=== PATIENT | male | born 1995 | race Caucasian/White ===

== ENCOUNTER → 2017-04-22 | Emergency (ER) | payer OTHER ==
[~2017-04-22] VITALS: Ht 180.3 cm; Wt 72.6 kg
[~2017-04-22] MED LIST: ALBUTEROL SULF8.5 GM INH; NORCO 5-325 TA1 EACH PO; OCUFLOX5 ML OPTH; ULTRAM50 MG PO
== END ==
LOC: ED 11:56
DX: K04.7 Periapical abscess without sinus (principal); F32.9 Major depressive disorder, single episode, unspecified; F90.9 Attention-deficit hyperactivity disorder, unspecified type; F17.200 Nicotine dependence, unspecified, uncomplicated; Z88.0 Allergy status to penicillin
CPT/HCPCS: 96365; 99283; J0696

== ENCOUNTER 2019-05-24 15:43 | Emergency (ER) | payer OTHER ==
[~2019-05-24] VITALS: Ht 185.4 cm; Wt 83.9 kg
[~2019-05-24 15:43] MED LIST changes: +CYCLOBENZAPRINE10 MG PO; +DICLOFENAC SODI75 MG PO; +IBUPROFEN600 MG PO; +ROBAXIN-750750 MG PO
--- OUTSIDE RECORDS SUMMARY | 2019-05-24 15:48 | XMS ---
PreManage Notification: TIM MURILLO Security Assistant Plant Manager Events No recent Security Events currently on file CRITERIA MET - [facility] - Has Care Guidelines - [facility] - 2 Visits in 30 Days CARE PROVIDERS GINA PORTER Nurse Practitioner: Family 04/03/2019-Current PHONE: Unknown NORI PRIMARY Primary Care 07/28/2016-[facility] PHONE: [phone] Guidelines Source: [facility] Guidelines Date: 04/03/2019 Care Coordination: Mental health services provided by [facility].\T\nbsp; Please contact [facility] with mental health concerns.\T\nbsp; Nori/Quincy Murrell: [phone]\T\ nbsp; Jesse: [phone]. Care History Medical/Surgical 04/03/2019 [facility] - Patient is currently established with [facility]. If patient is seen in the ED during business hours. Please contact CHWs at [facility]. Care Recommendation: This patient has had 5 or more Emergency Department visits in the last 12 months.\T\nbsp; Patient requires education on the scope and purpose of the ED as an acute care provider not a Primary Care Provider and should not be utilized for chronic conditions.\T\nbsp; These are guidelines and the provider should exercise clinical judgment when providing care. E.D. VISIT COUNT (12 MO.) 5 NILES Huerta TOTAL 5 NOTE: Visits indicate total known visits. ED/C VISIT TRACKING (12 MO.) 05/24/2019 15:46 [facility] [place] TYPE: Emergency COMPLAINT: - HEADACHE NUMBNESS IN NECK, DUE TO ACCIDENT 05/08/2019 11:54 [facility] [place] TYPE: Emergency COMPLAINT: - BACK PAIN NON INJURY DIAGNOSES: - Low back pain - Allergy status to penicillin - Overexertion from strenuous movement or load, initial encounter - Nicotine dependence, unspecified, uncomplicated - Strain of muscle, fascia and tendon of lower back, initial encounter 05/04/2019 19:29 [facility] [place] TYPE: Emergency COMPLAINT: - LOW BACK PAIN, NO INJURY DIAGNOSES: - Nicotine dependence, unspecified, uncomplicated - Low back pain - Allergy status to penicillin 05/02/2019 15:21 [facility] [place] TYPE: Emergency COMPLAINT: - JAW INJURY DIAGNOSES: - Striking against or struck by other objects, initial encounter - Allergy status to penicillin - Jaw pain - Nicotine dependence, unspecified, uncomplicated - Contusion of other part of head, initial encounter 04/02/2019 13:[address] [facility] [place] TYPE: Emergency COMPLAINT: - RIGHT HAND PAIN/INJURY DIAGNOSES: - Allergy status to penicillin - Nicotine dependence, unspecified, uncomplicated - Striking against or struck by other objects, initial encounter - Pain in right hand - Contusion of right hand, initial encounter INPATIENT VISIT TRACKING (12 MO.) No inpatient visits to display in this time frame [id number]
[2019-05-24] MEDS ORDERED: ONDANSETRON ODT4 MG PO (15:54)
== END 2019-05-24 17:04 | disposition home or self-care (01) ==
LOC: ED 15:43
DX: S16.1XXA Strain of muscle, fascia and tendon at neck level, initial encounter (principal); W22.8XXA Striking against or struck by other objects, initial encounter; F32.9 Major depressive disorder, single episode, unspecified; F90.9 Attention-deficit hyperactivity disorder, unspecified type; F17.200 Nicotine dependence, unspecified, uncomplicated; Z88.0 Allergy status to penicillin; Z79.899 Other long term (current) drug therapy
CPT/HCPCS: 99283

== ENCOUNTER 2019-07-11 23:57 | Emergency (ER) | payer OTHER ==
[~2019-07-11] VITALS: Ht 185.4 cm; Wt 83.9 kg
--- OUTSIDE RECORDS SUMMARY | ~2019-07-11 | XMS | Encounter Summary ---
Demographics + + + | Address | [address] | | | [place] [address] | + + + | Home Phone | | + + + | Preferred Language | Unknown | + + + | Marital Status | Single | + + + | Orthodoxy Affiliation | Unknown | + + + | Race | or | + + + | Ethnic Group | Not or | + + + Author + + + | Author | [facility] | + + + | Organization | [facility] | + + + | Address | Unknown | + + + | Phone | Unavailable | + + + Support + + + + + | Name | Relationship | Address | Phone | + + + + + | Татьяна Chris | ELSIE | [place] | | + + + + + Care Team Providers + +------+ + | Care Spinner Frame Name | Role | Phone | + +------+ + PCP | Unavailable | + +------+ + Encounter Details +--------+ + + + + | Date | Type | Department | Care Team | Description | +--------+ + + + + | 11/01/ | Office | [facility] | Consult, Cdrc | Progress Note | | 2003 | Visit-Trans | | | | | | cribed | | | | +--------+ + + + + Social History + +-------+ +--------+------+ | Tobacco Use | Types | Packs/Day | Years | Date | | | | | Used | | + +-------+ +--------+------+ | Never Assessed | | | | | + +-------+ +--------+------+ + + + | Sex Assigned at | Date Recorded | | | | + + + | Not on file | | + + + + + + + | Job Start Date | Occupation | Industry | + + + + | Not on file | Not on file | Not on file | + + + + + + + + | Travel History | Travel Start | Travel End | + + + + + + | No recent travel history available. | + + documented as of this encounter Progress Notes Interface, Baseball Winder In - 04/25/2005 8:31 PM PDTCLINIC DATE: 11/01/2003 CLINIC NAME: [facility]/[place]ori DISCIPLINE: Social Work Mac's father Miah comes to the [facility] meeting at the [place] [employer] [facility]. Mac has come to the attention of this team before and is also being monitored by the [facility] Team. Mac has a diagnosis of ADHD but behaviors and emotions are a significant and growing concern. School staff has administered Preeti rating scales and an Achenbach and results indicate that Mac struggles with depression and anxiety. He has challenges with emotional reactivity which contribute to the aggressive behavior when he becomes angry. His single dad works outside of the home and has his own health problems likely contribute to his difficulty in managing Mac's behavior. Also in this family is an older brother with behavior problems. Mac has been referred to [facility] but it appears that the head athletic trainer/strength coach who was supposed to be meeting with him was not. Mac is in need of immediate mental health treatment and likely family therapy. During today's meeting Mac's case making machine operator with [facility] was in attendance and indicated a desire to get this family connected to appropriate services within or outside of her system. Mac's paint tinter is Martine Pittman MD. Mac is a 4th grader at [employer]. Abeba Cook [facility] Gun Perforator Loader YOSEPH/nina P C: 01/28/2004 amm documented in this encounter Plan of Treatment Not on filedocumented as of this encounter Visit Diagnoses Not on filedocumented in this encounter"
--- OUTSIDE RECORDS SUMMARY | ~2019-07-11 | XMS | Clinical Summary ---
Demographics + + + | Address | [address] | | | [place] [address] | + + + | Home Phone | | + + + | Preferred Language | Unknown | + + + | Marital Status | Single | + + + | Taoism Affiliation | Unknown | + + + | Race | or | + + + | Ethnic Group | Not or | + + + Author + + + | Organization | Unknown | + + + | Address | Unknown | + + + | Phone | Unavailable | + + + Support + + + + + | Name | Relationship | Address | Phone | + + + + + | Татьяна Chris | ELSIE | [place] | | + + + + + Care Team Providers + +------+ + | Care Abatement Worker Name | Role | Phone | + +------+ + PCP | Unavailable | + +------+ + Source Comments TALA is fully live on both [facility] and [facility] InPatient.[facility] Allergies Not on File Medications Not on file Active Problems Not on file Social History + +-------+ +--------+------+ | Tobacco [...] recent travel history available. | + + Last Filed Vital Signs Not on file Plan of Treatment + + + + + | Health Maintenance | Due Date | Last Done | Comments | + + + + + | Influenza (Flu) | | | | | vaccination (#1) | 9 | | | + + + + + | Pneumococcal | Aged Out | | No longer eligible | | vaccination | | | based on patient's | | | | | age to complete this | | | | | topic | + + + + + Results Not on filefrom Last 3 Months"
--- OUTSIDE RECORDS SUMMARY | ~2019-07-11 | XMS | Encounter Summary ---
Demographics + + + | Address | [address] | | | [place] [address] | + + + | Home Phone | | + + + | Preferred Language | Unknown | + + + | Marital Status | Single | + + + | Sabianism Affiliation | Unknown | + + + | Race | or | + + + | Ethnic Group | Not or | + + + Author + + + | Author | [facility] | + + + | Organization | [facility] | + + + | Address | Unknown | + + + | Phone | Unavailable | + + + Support + + + + + | Name | Relationship | Address | Phone | + + + + + | Татьяна Chris | ELSIE | [place] | | + + + + + Care Team Providers + +------+ + | Care Therapeutic Riding Instructor Name | Role | Phone | + [...] as of this encounter Progress Notes Interface, Tankage Grinder In - 04/25/2005 8:31 PM PDTCLINIC DATE: 11/01/2003 CLINIC NAME: [facility]/[place] DISCIPLINE: Social Work Mac's father Miah comes to the [facility] meeting at the [facility] [employer] [facility]. Mac has come to the attention of this team before and is also being monitored by the [facility] Team. Mac has a diagnosis of ADHD [...] behavior problems. Mac has been referred to [facility] but it appears that the clinical provider trainer who was supposed to be meeting with him was not. Mac is in need of immediate mental health treatment and likely family therapy. During today's meeting Mac's welfare case worker with [facility] was in attendance and indicated a desire to get this family connected to appropriate services within or outside of her system. Mac's networking administrator is Martine Pittman MD. Mac is a 4th grader at [employer]. Abeba Cook [facility] Manager Ship YOSEPH/nina P C: 01/28/2004 amm documented in this encounter Plan of Treatment Not on filedocumented as of this encounter Visit Diagnoses Not on filedocumented in this encounter"
--- OUTSIDE RECORDS SUMMARY | ~2019-07-11 | XMS | Clinical Summary ---
Demographics + + + | Address | [address] | | | [place] [address] | + + + | Home Phone [...] Team Providers + +------+ + | Care Astrobiologist Name | Role | Phone | + +------+ + PCP | Unavailable | + +------+ + Source Comments TALA is fully live on both [facility] and [facility] InPatient.[facility] Allergies Not on File Medications Not [...]
[~2019-07-11 23:57] MED LIST changes: +ONDANSETRON ODT4 MG PO
--- OUTSIDE RECORDS SUMMARY | 2019-07-12 | XMS ---
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 Events No recent Security Events currently on file CRITERIA MET - 6 ED Visits in 6 Months - [facility] - Has Care Guidelines CARE PROVIDERS GINA PORTER Nurse Practitioner: Family 04/03/2019-Current PHONE: Unknown NORI PRIMARY Primary Care 07/28/2016-[facility] PHONE: [phone] [facility] Guidelines Date: 04/03/2019 Care Coordination: [facility].\T\nbsp; [facility].\T\nbsp; Nori/Quincy Murrell: [phone]\T\ nbsp; Jesse: [phone]. Care History Medical/Surgical 04/03/2019 [facility] - Patient is currently established with [facility]. If patient is seen in the ED during business hours. Please contact CHWs at [facility]. Care Recommendation: This patient has had 5 or more Emergency Department visits in the last 12 months.\T\nbsp; Patient requires education on the scope and purpose of the ED as an acute care provider not a Primary Care Provider and should not be utilized for chronic conditions.\T\nbsp; These are guidelines and the provider should exercise clinical judgment when providing care. ELoveD. VISIT COUNT (12 MO.) 6 NILES Huerta TOTAL 6 NOTE: Visits indicate total known visits. ED/UCC VISIT TRACKING (12 MO.) 07/11/2019 23:58 NIL[facility] [place] TYPE: Emergency COMPLAINT: - LEFT ARM PAIN 05/24/2019 15:46 [facility] [place] TYPE: Emergency COMPLAINT: - HEADACHE NUMBNESS IN NECK, DUE TO ACCIDENT DIAGNOSES: - Other group home (current) drug therapy - Major depressive disorder, single episode, unspecified - Nicotine dependence, unspecified, uncomplicated - Allergy status to penicillin - Attention-deficit hyperactivity disorder, unspecified type - Striking against or struck by other objects, init encntr - Strain of muscle, fascia and tendon at neck level, init - Cervicalgia 05/08/2019 11:54 [facility] [place] TYPE: Emergency COMPLAINT: - BACK PAIN NON INJURY DIAGNOSES: - Low back pain - Allergy status to penicillin - Overexertion from strenuous movement or load, init - Nicotine dependence, unspecified, uncomplicated - Strain of muscle, fascia and tendon of lower back, init 05/04/2019 19:29 [facility] [place] TYPE: Emergency COMPLAINT: - LOW BACK PAIN, NO INJURY DIAGNOSES: - Nicotine dependence, unspecified, uncomplicated - Low back pain - Allergy status to penicillin 05/02/2019 15:21 [facility] [place] TYPE: Emergency COMPLAINT: - JAW INJURY DIAGNOSES: - Striking against or struck by other objects, init encntr - Allergy status to penicillin - Jaw pain - Nicotine dependence, unspecified, uncomplicated - Contusion of other part of head, initial encounter 04/02/2019 13:47 [facility] [place] TYPE: Emergency COMPLAINT: - RIGHT HAND PAIN/INJURY DIAGNOSES: - Allergy status to penicillin - Nicotine dependence, unspecified, uncomplicated - Striking against or struck by other objects, init encntr - Pain in right hand - Contusion of right hand, initial encounter INPATIENT VISIT TRACKING (12 MO.) No inpatient visits to display in this time frame [email or web address]
[2019-07-12] MEDS ORDERED: ARIPIPRAZOLE5 MG PO (00:02)
[2019-07-12] MEDS ORDERED: ARIPIPRAZOLE10 MG PO (00:02)
[2019-07-12] MEDS ORDERED: MINIPRESS2 MG PO (00:03)
[2019-07-12] MEDS ORDERED: IBUPROFEN600 MG PO (00:04)
== END 2019-07-12 00:22 | disposition home or self-care (01) ==
LOC: ED 23:57
DX: M79.602 Pain in left arm (principal); F17.200 Nicotine dependence, unspecified, uncomplicated; F32.9 Major depressive disorder, single episode, unspecified; Z88.0 Allergy status to penicillin; Z79.899 Other long term (current) drug therapy
CPT/HCPCS: 99283

== ENCOUNTER 2021-02-20 07:50 | Emergency (ER) | payer OTHER ==
[~2021-02-20] VITALS: Ht 185.4 cm; Wt 97.1 kg
[~2021-02-20 07:50] MED LIST changes: +ARIPIPRAZOLE10 MG PO; +ARIPIPRAZOLE5 MG PO; +MINIPRESS2 MG PO
[2021-02-20] MEDS ORDERED: BUPROPION XL150 MG PO (08:59)
[2021-02-20] MEDS ORDERED: ONDANSETRON ODT8 MG PO (11:21)
== END 2021-02-20 11:32 | disposition home or self-care (01) ==
LOC: ED 07:50
DX: A08.4 Viral intestinal infection, unspecified (principal); Z87.891 Personal history of nicotine dependence; Z88.0 Allergy status to penicillin; Z79.899 Other long term (current) drug therapy
CPT/HCPCS: 74177; 80053; 81001; 83690; 85025; 99284-25; J2405; J7030; Q9967

== ENCOUNTER 2021-09-22 11:57 | Emergency (ER) | payer OTHER ==
[~2021-09-22] VITALS: Ht 185.4 cm; Wt 103.1 kg
[~2021-09-22 11:57] MED LIST changes: +BUPROPION XL150 MG PO; +ONDANSETRON ODT8 MG PO
[2021-09-22] MEDS ORDERED: OMEPRAZOLE20 MG PO (15:23)
[2021-09-24] MEDS ORDERED: DICLOFENAC SODI75 MG PO (22:01)
[2021-09-24] MEDS ORDERED: LIDODERM1 EACH TOP (22:01)
== END 2021-09-22 16:46 | disposition home or self-care (01) ==
LOC: ED 11:57
DX: M54.50 Low back pain, unspecified (principal); Z87.891 Personal history of nicotine dependence; Z88.0 Allergy status to penicillin; Z79.899 Other long term (current) drug therapy
CPT/HCPCS: 96372; 99283; A9270; J1885

== ENCOUNTER 2022-03-11 08:44 | Emergency (ER) | payer OTHER ==
[~2022-03-11] VITALS: Ht 188 cm; Wt 93.0 kg
[~2022-03-11 08:44] MED LIST changes: +LIDODERM1 EACH TOP; +OMEPRAZOLE20 MG PO
--- OUTSIDE RECORDS SUMMARY | 2022-03-11 10:42 | XMS ---
PreManage Notification: TIM MRUILLO Security Aged Or Disabled Carer Events No recent Security Events currently on file CRITERIA MET - [facility] - 2 Visits in 30 Days CARE PROVIDERS GINA PORTER Nurse Practitioner: 04/03/2019-Current PHONE: Unknown Monica Contreras Nurse Practitioner: Current PHONE: [phone] Care Guidelines exist for the following facilities: [facility] ( 11/11/2020 ) Care History Medical/Surgical 04/03/2019 [facility] - Patient is currently established with [facility]. If patient is seen in the ED during business hours. Please contact CHWs at [facility]. Care Recommendation: This patient has had 5 [...] providing care. E.D. VISIT COUNT (12 MO.) 4 NILES Huerta TOTAL 4 NOTE: Visits indicate total known visits. ED/UCC VISIT TRACKING (12 MO.) 03/11/2022 08:45 [facility] [place] TYPE: Emergency COMPLAINT: - R ANKLE/CALF PAIN 03/10/2022 19:30 [facility] [place] [facility] [place] TYPE: Emergency COMPLAINT: - RT ANKLE PAIN 09/24/2021 15:57 [facility] [place] TYPE: Emergency COMPLAINT: - BACK PAIN/NON INJURY DIAGNOSES: - Low back pain, unspecified - LOW BACK PAIN, UNSPECIFIED - Personal history of nicotine dependence - Allergy status to penicillin - Other truck terminal manager (current) drug therapy 09/22/2021 11:58 NIL[facility] [place] TYPE: Emergency COMPLAINT: - LOWER BACK PAIN DIAGNOSES: - Allergy status to penicillin - Other truck terminal manager (current) drug therapy - LOW BACK PAIN, UNSPECIFIED - Low back pain, unspecified - Personal history of nicotine dependence INPATIENT VISIT TRACKING (12 MO.) No inpatient visits to display in this time frame [email or web address]
== END 2022-03-11 10:06 | disposition home or self-care (01) ==
LOC: ED 08:44
DX: S86.111A Strain of other muscle(s) and tendon(s) of posterior muscle group at lower leg level, right leg, initial encounter (principal); X50.1XXA Overexertion from prolonged static or awkward postures, initial encounter; Z87.891 Personal history of nicotine dependence; Z88.0 Allergy status to penicillin; Z79.899 Other long term (current) drug therapy
CPT/HCPCS: 99283

== ENCOUNTER 2022-04-03 15:16 | Emergency (ER) | payer OTHER ==
[~2022-04-03] VITALS: Ht 188 cm; Wt 90.7 kg
--- OUTSIDE RECORDS SUMMARY | 2022-04-03 15:24 | XMS ---
PreManage Notification: TIM MURILLO Security Plan Checker Events 1 event(s) in the past 18 months Most recent security events: Elopement at [facility] 03/10/2022 19:30 - Patient eloped before treatment completed. - Patient with suicidal and/or homicidal ideations eloped. - Patient eloped with IV in place. Details: PATIENT LWBS CRITERIA MET - [facility] - 2 Visits in 30 Days CARE PROVIDERS GINA PORTER Nurse Practitioner: 04/03/2019-Current PHONE: Unknown Monica Contreras Nurse Practitioner: Current PHONE: [phone] Care Guidelines exist for the following facilities: [facility] ( 11/11/2020 ) Care History Medical/Surgical 04/03/2019 [facility] - Patient is currently established with [facility]. If patient is seen in the ED during business hours. Please contact CHWs at [facility]. Care Recommendation: This patient has had 5 [...] care. E.D. VISIT COUNT (12 MO.) 5 [facility]. TOTAL 5 NOTE: Visits indicate total known visits. ED/UCC VISIT TRACKING (12 MO.) 04/03/2022 15:17 N[facility] [place] TYPE: Emergency COMPLAINT: - BACK PAIN 03/11/2022 08:45 NIL[facility] Go[facility] [place] TYPE: Emergency COMPLAINT: - R ANKLE/CALF PAIN DIAGNOSES: - Personal history of nicotine dependence - Pain in right ankle and joints of right foot - Strain of other muscle(s) and tendon(s) of posterior muscle group at lower leg level, right leg, initial encounter - Other assisted (current) drug therapy - Overexertion from prolonged static or awkward postures, initial encounter - Allergy status to penicillin 03/10/2022 19:30 N[facility] [place] TYPE: Emergency COMPLAINT: - RT ANKLE PAIN 09/24/2021 15:57 N[facility] [place] TYPE: Emergency COMPLAINT: - BACK PAIN/NON INJURY DIAGNOSES: - Low back pain, unspecified - LOW BACK PAIN, UNSPECIFIED - Personal history of nicotine dependence - Allergy status to penicillin - Other superintendent marine oil terminal (current) drug therapy 09/22/2021 11:[address] [facility] [place] TYPE: Emergency COMPLAINT: - LOWER BACK PAIN DIAGNOSES: - Allergy status to penicillin - Other superintendent marine oil terminal (current) drug therapy - LOW BACK PAIN, UNSPECIFIED - Low back pain, unspecified - Personal history of nicotine dependence INPATIENT VISIT TRACKING (12 MO.) No inpatient visits to display in this time frame [email or web address]
[2022-04-03] MEDS ORDERED: METHOCARBAMOL750 MG PO (16:01)
== END 2022-04-03 16:18 | disposition home or self-care (01) ==
LOC: ED 15:16
DX: M54.50 Low back pain, unspecified (principal); Z87.891 Personal history of nicotine dependence; Z88.0 Allergy status to penicillin; Z79.899 Other long term (current) drug therapy
CPT/HCPCS: 99283; A9270

== ENCOUNTER 2022-04-11 10:32 | Emergency (ER) | payer OTHER ==
[~2022-04-11] VITALS: Ht 188 cm; Wt 89.8 kg
[~2022-04-11 10:32] MED LIST changes: +METHOCARBAMOL750 MG PO
--- OUTSIDE RECORDS SUMMARY | 2022-04-11 10:40 | XMS ---
PreManage Notification: TIM MURILLO Security National Sales Associate Events 1 event(s) in the past 18 months Most recent security events: Elopement at [facility] 03/10/2022 19:30 - Patient eloped before treatment completed. - Patient with suicidal and/or homicidal ideations eloped. - Patient eloped with IV in place. Details: PATIENT LWBS CRITERIA MET - [facility] - 2 Visits in 30 Days CARE PROVIDERS GINA PORTER Nurse Practitioner: 04/03/2019-Current PHONE: Unknown Monica Contreras Nurse Practitioner: Current PHONE: [phone] Care Guidelines exist for the following facilities: [facility] ( 11/11/2020 ) Care History Medical/Surgical 04/03/2019 [facility] - [facility] [...] providing care. E.D. VISIT COUNT (12 MO.) 7 [facility]. TOTAL 7 NOTE: Visits indicate total known visits. ED/UCC VISIT TRACKING (12 MO.) 04/11/2022 10:32 [facility] [place] [facility] [place] TYPE: Emergency COMPLAINT: - BACK PAIN 04/10/2022 17:52 [facility] [place] [facility] [place] TYPE: Emergency COMPLAINT: - BACK PAIN 04/03/2022 15:17 [facility] [place] [facility] [place] TYPE: Emergency COMPLAINT: - BACK PAIN DIAGNOSES: - Other terminal clerk (current) drug therapy - Personal history of nicotine dependence - Dorsalgia, unspecified - Allergy status to penicillin - Low back pain, unspecified 03/11/2022 08:45 [facility] [place] [facility] [place] TYPE: Emergency COMPLAINT: - R ANKLE/CALF PAIN DIAGNOSES: - Personal history of nicotine dependence - Pain in right ankle and joints of right foot - Strain of other muscle(s) and tendon(s) of posterior muscle group at lower leg level, right leg, initial encounter - Other nursing home (current) drug therapy - Overexertion from prolonged [...] - Allergy status to penicillin - Other nursing home (current) drug therapy 09/22/2021 11:58 [facility] [place] TYPE: Emergency COMPLAINT: - LOWER BACK PAIN DIAGNOSES: - Allergy status to penicillin - Other terminal clerk (current) drug therapy - LOW BACK PAIN, UNSPECIFIED - Low back pain, unspecified - Personal history of nicotine dependence INPATIENT VISIT TRACKING (12 MO.) No inpatient visits to display in this time frame [email or web address]
[2022-04-11] MEDS ORDERED: METHYLPREDNISOLO4 M1 PO (12:52)
== END 2022-04-11 13:04 | disposition home or self-care (01) ==
LOC: ED 10:32
DX: M54.42 Lumbago with sciatica, left side (principal); Z87.891 Personal history of nicotine dependence; Z88.0 Allergy status to penicillin; Z79.899 Other long term (current) drug therapy
CPT/HCPCS: 99283

== ENCOUNTER 2022-10-18 11:13 | Emergency (ER) | payer OTHER ==
[~2022-10-18] VITALS: Ht 188 cm; Wt 96.6 kg
[~2022-10-18 11:13] MED LIST changes: +METHYLPREDNISOLO4 M1 PO
== END 2022-10-18 13:01 | disposition home or self-care (01) ==
LOC: ED 11:13
DX: M25.552 Pain in left hip (principal); Z88.0 Allergy status to penicillin; Z87.891 Personal history of nicotine dependence; Z79.899 Other long term (current) drug therapy
CPT/HCPCS: 73502; 99283-25

== ENCOUNTER 2023-01-28 19:23 | Emergency (ER) | payer OTHER ==
[~2023-01-28] VITALS: Ht 188 cm; Wt 93.1 kg
[2023-01-28 21:09] VITALS: BP 92/53
== END 2023-01-28 21:11 | disposition home or self-care (01) ==
LOC: ED 19:23
DX: S93.401A Sprain of unspecified ligament of right ankle, initial encounter (principal); X50.1XXA Overexertion from prolonged static or awkward postures, initial encounter; F84.0 Autistic disorder; Z87.891 Personal history of nicotine dependence; Z88.0 Allergy status to penicillin
CPT/HCPCS: 73610

== ENCOUNTER 2024-07-18 11:27 | Emergency (ER) | payer OTHER ==
[~2024-07-18] VITALS: Ht 188 cm; Wt 102.7 kg
[~2024-07-18 11:27] MED LIST changes: +NEURONTIN400 MG PO; +PREDNISONE20 MG PO
[2024-07-18] MEDS ORDERED: CYCLOBENZAPRINE HCL 10 MG TAB PO ONE (12:00)
[2024-07-18] MEDS ORDERED: CYCLOBENZAPRINE10 MG PO (12:09)
[2024-07-18 13:20] VITALS: BP 106/56
== END 2024-07-18 13:20 | disposition home or self-care (01) ==
LOC: ED 11:27
DX: M54.50 Low back pain, unspecified (principal); Z87.891 Personal history of nicotine dependence; Z88.0 Allergy status to penicillin; Z88.8 Allergy status to other drugs, medicaments and biological substances
CPT/HCPCS: 99283

== ENCOUNTER 2024-09-24 13:06 | Emergency (ER) | payer OTHER ==
[~2024-09-24] VITALS: Ht 188 cm; Wt 105.7 kg
[2024-09-24] MEDS ORDERED: CETIRIZINE HCL10 MG PO (13:14)
[2024-09-24 13:29] VITALS: BP 121/76
== END 2024-09-24 13:29 | disposition home or self-care (01) ==
LOC: ED 13:06
DX: J06.9 Acute upper respiratory infection, unspecified (principal); Z87.891 Personal history of nicotine dependence; Z88.0 Allergy status to penicillin; Z88.8 Allergy status to other drugs, medicaments and biological substances; Z79.899 Other long term (current) drug therapy
CPT/HCPCS: 99283